=== PATIENT | female | born 1980 | race Caucasian/White ===

== ENCOUNTER 2021-11-28 18:33 | Emergency (ER) | payer MEDICAID, SELFPAY ==
--- NOTE | ~2021-11-28 | XR_ITS ---
XR chest 2V DATE: 11/28/2021 21:54 INDICATION: Abnormal EKG. Smoker. TECHNIQUE: PA and lateral views COMPARISON: None FINDINGS: Normal heart size. Mediastinal enlargement. Consolidation, pleural effusion or pulmonary va scular congestion or pneumothorax. Mild thoracic dextroscoliosis. IMPRESSION: No active cardiopulmonary disease Reviewed, dictated and finalized at location A.
--- NOTE | 2021-11-28 18:44 | ECG_ITS ---
Measurements Intervals Mason Rate: 75 P: 62 TN: 132 QRS: 76 QRSD: 94 T: -58 QT: 366 QTc: 411 Interpretive Statements SINUS RHYTHM ST DEVIATION AND MODERATE T-WAVE ABNORMALITY, CONSIDER ANTEROLATERAL ISCHEMIA [-0.1+ mV T WAVE IN V3-V6] ST DEVIATION AND MODERATE T-WAVE ABNORMALITY, CONSIDER INFERIOR ISCHEMIA [-0.1+ mV T WAVE IN II/aVF] ABNORMAL ECG NO PREVIOUS ECG AVAILABLE FOR COMPARISON Electronically Signed On 11-29-2021 14:34:57 CDT by Evan Caldwell M.D.
--- NOTE | 2021-11-28 18:45 | ED.PSYCH ---
HPI - Psych General Chief Complaint: Psychiatric Symptoms <BRICE Jeffrey Last Filed: 11/28/21 23:00> Stated Complaint: SUICIDAL THOUGHTS <BRICE Jeffrey Last Filed: 11/28/21 23:00> Time Seen by Provider: 11/28/21 18:40 <Lauren Villanueva PA-C - Last Filed: 11/28/21 23:00> History of Present Illness HPI Narrative: Patient is a 41-year-old female here for evaluation of suicidal thoughts with plan. Patient states that she has been feeling down and depressed for her whole life but has never saught treatment for this in the past or been admitted to a psychiatric facility She states that she has had numerous life stressors including losing her job and becoming homeless over the past week that has led her to feel suicidal. She said suicidal thoughts in the past but has never had a plan or acted on them in the past. She denies audiovisual hallucinations. Patient states she is healthy although she has not seen a physician in many years. Denies chest pain, shortness of breath, dizziness, nausea, abdominal pain, fatigue. <BRICE Jeffrey Last Filed: 11/28/21 23:00> Related Data Allergies/Adverse Reactions: Allergies Allergy/AdvReac Type Severity Reaction Status Date / Time No Known Allergies Allergy Verified 11/28/21 19:52 <BRICE Jeffrey Last Filed: 11/28/21 23:00> Review of Systems Review of Systems: Gen.: Denies fevers or chills Eyes: Denies eye pain or visual change ENT: Denies congestion Respiratory: Denies shortness of breath or cough CV: Denies chest pain or palpitations GI: Denies abdominal pain nausea, emesis or diarrhea denies burning, urgency, frequency or hematuria Musculoskeletal: Denies back pain or muscle pain Neuro: Denies numbness, tingling, weakness or focal weakness Psych: Reports suicidal thoughts and plan Skin: Denies rash Except as documented, all other systems reviewed and negative <BRICE Jeffrey Last Filed: 11/28/21 23:00> [facility] Social History Social History: Social History Substance use type: does not use <Lauren Villanueva PA-C - Last Filed: 11/28/21 23:00> Exam Narrative: APPEARANCE: Calm, cooperative, pleasant Head: normocephalic and atraumatic. EYES: PERRLA/EOMI, conjunctivae clear NOSE: No nasal drainage EARS: External ear normal in appearance THROAT: Oropharynx is clear. Mucous membranes are moist. NECK: Supple. No adenopathy, no masses. RESPIRATORY: Airway patent, respirations nonlabored. Clear to auscultation bilaterally, no rales, rhonchi, wheezing. CARDIOVASCULAR: Regular rate and rhythm without murmurs, rubs, or gallops. ABDOMINAL: Normoactive bowel sounds. Soft, nontender, nondistended. No rebound tenderness or guarding. MUSCULOSKELETAL: Extremities are warm and well-perfused. Moves all extremities well. No edema. NEURO: Normal speech. No focal neurologic deficits. SKIN:: Skin is warm and dry. No rashes. PSYCHIATRIC: Depressed mood <Lauren Villanueva PA-C - Last Filed: 11/28/21 23:00> Course Course Emergency Course: PT signed out to [facility] by ANDREINA Villanueva awaiting transfer to [facility]. Pt accepted for admission to that facility for SI. Awaiting transfer. <Madie Portillo MD - Last Filed: 11/29/21 07:26> SLITTER CUT OFF OPERATOR/PA Physician Supervision For this encounter, I have reviewed the [facility] documentation, treatment plan and medical decision making: I was available for consultation as needed. [] <Carl Liu DO - Last Filed: 11/29/21 16:49> Vital Signs Vital signs: Vital Signs Temperature 99.6 F 11/28/21 19:36 Pulse Rate 103 H 11/28/21 19:36 Respiratory Rate 18 11/28/21 19:36 Blood Pressure 140/72 11/28/21 19:36 Pulse Oximetry 98 11/28/21 19:36 Temperature 97.9 F 11/29/21 08:23 Pulse Rate 79 11/29/21 08:23 Respiratory Rate 18 11/29/21 08:23 Blood Pressure 114/69 11/29/21 08:23 Pulse Oximetry 99
[2021-11-28 19:18] LABS: Basophils Percent Auto 0.6 % (0.2-1.2); Eosinophils Absolute Auto 0.1 K/mm3 (0-0.3); Eosinophils Percent Auto 1.5 % (0-4.4); Hematocrit 40.8 % (37.0-47.0); Hemoglobin 13.8 g/dL (12.0-15.0); Immature Granulocyte Absolute 0.01 K/mm3 (0.00-0.031); Immature Granulocyte Percent A 0.1 % (0-0.5); Lymphocytes Absolute Auto 2.18 K/mm3 (0.9-3.2); Lymphocytes Percent Auto 30.3 % (18.3-44.2); Mean Corpuscular HGB Conc 33.8 g/dl (32-36); Mean Corpuscular Hemoglobin 29.9 pg (26-34); Mean Corpuscular Volume 88.5 fl (80-100); Mean Platelet Volume 9.9 fl (7.4-10.4); Monocytes Absolute Auto 0.7 K/mm3 (0.1-0.6); Monocytes Percent Auto 9.2 % (2.6-8.5); Neutrophils Absolute Auto 4.2 K/mm3 (1.3-6.7); Neutrophils Percent Auto 58.3 % (45.5-73.1); Platelet Count Result 311 k/mm3 (150-375); Red Blood Count 4.61 M/mm3 (4.2-5.4); Red Cell Distribution Width 13.9 % (11.5-14.5); White Blood Count 7.2 K/mm3 (4.5-10.0)
[2021-11-28 19:26] LABS: Acetaminophen < 10 ug/mL (10-30); Ethanol < 10 mg/dL (<10); Salicylate < 1.0 mg/dL (2-20)
[2021-11-28 19:28] LABS: Alanine Aminotransferase 10 U/L (6-35); Albumin Level 4.4 g/dL (3.5-5.1); Alkaline Phosphatase 91 U/L (38-126); Anion Gap 8 mmol/L (8-16); Aspartate Amino Transferase 22 U/L (14-36); Bilirubin,Total 0.5 mg/dL (0.2-1.3); Blood Urea Nitrogen 7 mg/dL (7-17); Calcium 8.9 mg/dL (8.4-10.2); Carbon Dioxide 22 mmol/L (22-30); Chloride 109 mmol/L (98-107); Estimated CRCL calculation 97 ml/min; Estimated Glomerular Filt Rate > 60; Glucose 96 mg/dL (65-110); Potassium 3.1 mmol/L (3.4-5.0); Sodium 139 mmol/L (137-145)
[2021-11-28 19:36] VITALS: BP 140/72; PULSE 103; RESP 18; TEMP 37.6; O2SAT 98
[2021-11-28 19:38] LABS: Appearance Urine Cloudy (Clear); Bilirubin Urine 2+ (Negative); Blood Urine 3+ (Negative); Color Urine Amber (Yellow); Glucose Urine UA Negative (Negative); Ketones Urine 2+ mg/dL (Negative); Leukocyte Esterase Ur Trace LEU/UL (Negative); Nitrate Urine Negative (Negative); Protein Urine 2+ mg/dL (Negative); Specific Grav Ur 1.025 (1.001-1.035); pH Urine 5.5 (5.0-9.0)
[2021-11-28 19:42] LABS: Mucus Urine Moderate /lpf; RBC Urine >75 /hpf (0-2); Squamous Epithelial Cell Urine Rare /hpf (Few); WBC Urine >75 /hpf
[2021-11-28 19:43] LABS: Add Urine Microscopic? YES
[2021-11-28 19:46] LABS: Amphetamine Screen Urine Negative (Negative); Barbiturate Screen Urine Negative (Negative); Benzodiazepines Screen Urine Negative (Negative); Cannabinoid Screen Urine Negative (Negative); Cocaine Screen Urine Negative (Negative); Methadone Screen Urine Negative (Negative); Opiate Screen Urine Negative (Negative); Phencyclidine Screen Urine Negative (Negative)
[2021-11-28] MEDS: POTASSIUM CHLORIDE 20 MEQ TABLET PO (19:50)
[2021-11-28 20:45] LABS: Prothrombin Time 13.2 Seconds (11.1-14.7)
[2021-11-28 20:46] LABS: Partial Thromboplastin Time 27.4 SECONDS (22.3-36.8)
[2021-11-28 20:50] LABS: Troponin I < 0.012 ng/mL (0.000-0.034)
[2021-11-28 22:50] LABS: Troponin I < 0.012 ng/mL (0.000-0.034)
--- NOTE | 2021-11-28 22:58 | PC.NURSE ---
This nurse left a voicemail for [facility] to set up a psychiatric evaluation for the pt.
[2021-11-28 23:31] VITALS: BP 125/70; PULSE 70; RESP 18; O2SAT 100
--- NOTE | 2021-11-29 00:28 | PC.NURSE ---
Crisis intervention worker arrived to [facility] and worker given pt chart with face sheet for evaluation.
[2021-11-29] MEDS: hydrOXYzine HCL 25 MG TABLET 50 MG (03:42)
[2021-11-29 05:42] LABS: SARS-CoV-2 RNA PCR Negative
--- NOTE | 2021-11-29 06:31 | PC.NURSE ---
spoke with fela at [facility]. per fela pt accepted by dr Waters, they require a covid test then they will call us with bed placement. covid results faxxed at this time.
--- NOTE | 2021-11-29 07:30 | PC.NURSE ---
report given to LORI Moreno at [facility] at this time. pt bed will be [id number]
--- NOTE | 2021-11-29 07:40 | PC.NURSE ---
[facility] transfer eta 0900 trip #[id number]
[2021-11-29 08:23] VITALS: BP 114/69; PULSE 79; RESP 18; TEMP 36.6; O2SAT 99
== END 2021-11-29 09:16 ==
PROVIDERS: Emergency Medicine; Physician Assistant; Emergency Provider Emergency Medicine
DX: R45.851 Suicidal ideations (principal); Z20.822 Contact with and (suspected) exposure to COVID-19; R94.31 Abnormal electrocardiogram [ECG] [EKG]
CPT/HCPCS: 36415; 71046; 80053; 80307; 81001; 81025; 84443; 84484; 85025; 85610; 85730; 87086; 87088; 93005; 99285; A9270; C9803; U0003; U0005